=== PATIENT | female | born 1960 ===

== ENCOUNTER → 2022-03-09 15:25 | Outpatient (BNVA) | payer OTHER, SELFPAY | PROVIDERS: PCP Internal Medicine; Visit Provider Internal Medicine | DX: K74.69 Other cirrhosis of liver (principal); B19.20 Unspecified viral hepatitis C without hepatic coma; C22.0 Liver cell carcinoma; R18.8 Other ascites | CPT/HCPCS: 99202 ==

== ENCOUNTER 2022-11-08 10:34 | Outpatient (REF) | payer OTHER, SELFPAY ==
--- NOTE | 2022-11-08 17:00 | MHC.AU.ANO ---
Adult Audiological Evaluation Date of Visit: 11/08/22 [address] Mail Carrier Used: No Reason for Appointment: Katherine was referred for an audiologic evaluation due to increasing hearing difficulties, right ear greater than left. She reports long-standing hearing difficulties, and more recent problems with dizziness. Katherine notes episodes of brief dizziness which occur in all positions including walking, standing, turning, sitting, and laying down. The longest episode was approximately 5 minutes; however, she reports these episodes are occurring more often and changing in intensity. Has hearing been tested previously?: Yes Previous Hearing Test Results: Many years ago. Results are not available for review. Hearing Handicap Inventory: HHIE SCORE: 16 Based on HHIE score, patient has: Mild to moderate perceived hearing handicap Ear History: History of Ear Wax Buildup: Right ear greater than left Bothersome Tinnitus/Ringing/Noises in Ears: Right Ear Ear used on the phone: Left Ear History of occupational noise exposure?: No History: No Medical History: Medical History: Liver Cancer, Hepatitis C, mild cognitive disorder, vitamin D deficiency, hypertension Medication List: ProAir, Spironolactone, Metoprolol, Gabapentin, Tizanidine, Omeprazole, Meclizine, Ondansetron Otoscopy: Right Ear: Completely occluding cerumen. Able to remove all cerumen prior to testing Left Ear: Small amount of non-occluding cerumen Tympanometry: Tympanometry performed due to: To assess integrity of the middle ear system Right Ear: Normal Middle Ear System (Type A) Left Ear: Reduced Middle Ear Compliance (Type As) Acoustic Reflexes: Patient did not tolerate acoustic reflex testing Otoacoustic Emissions Frequency Range Used: 1.6-8 kHz Right Ear Results: Absent Emissions Analysis: Results are consistent with degree and configuration of hearing loss Left Ear Results: Absent Emissions Analysis: Results are consistent with degree and configuration of hearing loss Hearing Evaluation: Transducer(s) Used: Insert Earphones Bone Conduction Method: Conventional Audiometry Stimuli Used: Pure Tones Right Ear: Description of Hearing: Borderline normal hearing at 250 and 500 Hz, dropping to a severe high frequency sensorineural hearing loss with 92% speech understanding at 75 dB HL Left Ear: Description of Hearing: Borderline normal hearing at 250 and 500 Hz, dropping to a severe high frequency sensorineural hearing loss with92% speech understanding at 75 dB HL Interpretation of Results: With the significant severe high frequency sensorineural hearing loss, Katherine is able to hear , but have difficulty understanding During testing, Katherine indicated significant sound tolerance problems for speech and the high frequency stimuli. Left ear UCL thresholds are reduced compared to the right and may relate to the tolerance problems noted by Katherine. Recommendations: - Medical consultation with Protection Mgr Dr. Bronson Frias for further assessment of the sound tolerance difficulties and dizziness. - Discussed trial period with amplification; however, there are concerns regarding Katherine's sound tolerance. If medically cleared for hearing aids by Dr. Frias, Katherine may schedule a Hearing Aid Evaluation at this office. - Advise audiologic re-evaluation in one year, or sooner if there is an increase in symptoms. Diagnosis: Primary Diagnosis: H90.3 Bilateral Sensorineural Hearing Loss Services Performed: Comprehensive Audiological Evaluation (CPT 84302) Diagnostic Otoacoustic Emissions (CPT 04410, 26+TC) Tympanometry (CPT 66358) Signature: Provider: Brandon Cain, [facility]
== END 2022-11-08 10:35 | disposition home or self-care (01) ==
LOC: HO.SH 10:34
PROVIDERS: Visit Provider Internal Medicine
DX: Z01.118 Encounter for examination of ears and hearing with other abnormal findings (principal); H90.3 Sensorineural hearing loss, bilateral
CPT/HCPCS: 92557; 92567; 92588

== ENCOUNTER 2023-03-08 10:25 | Outpatient (AMB) | payer OTHER, SELFPAY ==
--- NOTE | 2023-03-08 10:27 | A.OFFVIS_ITS ---
Intake Vital Signs 03/08/23 10:29 Height 5 ft 5 in Weight 209 lb 7.026 oz BMI 34.8 BP 140/73 H Blood Pressure Location Lt brachial Position Sitting Pulse 75 Intake Visit Reasons: follow up Cirrhosis Intake Note: Katherine presents in the office as a follow up for Cirrhosis. CC: She states that she is having burning in her stomach when she eats. Constipation but it is not all the time. 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 03/09/22: Patient previously has been a patient of Dr. Mcconnell. She was diagnosed with hepatitis-C in 2005. At that time treatment was not pursued. She was initially treated in 2018 with reported SVR. Patient does not recall the medication, thinks may have been Epclusa. Did not have any complication from portal hypertension until 2018, when post cholecystectomy he developed ascites. Since then she has been on diuretics. She also subsequently had an upper endoscopy and was told that she does not have any varices. In terms of her HCC, she does recall undergoing ultrasound for her liver. In August 2017, a 1 cm nodule in the liver was noted on ultrasound. This was followed up with an MRI, the report of which is not available. She also reports having a liver biopsy, again report is not available. In May 2020, patient developed severe right-sided abdominal pain associated with nausea which prompted a visit to [facility] emergency room. She was found to have an exophytic liver mass measuring 5 cm as well as other multifocal lesions. She was referred to [facility] for consideration of resection versus transplant but was outside [facility] criteria. She was also not a candidate for local regional therapy. She sees Dr. Moreno for Oncology. She was started on atezolizumab and bevacizumab combination systemic therapy however had severe adverse effects and therefore stopped it after 1 session. She was then offered nivolumab monotherapy, which the patient declined. Currently, she has been off any palliative treatment for at least a year. Her main complaint at present is right midback discomfort especially on lying down. She also occasionally has sensation of increased fatigue and decreased stamina with palpitations. Had initially lost weight, but did regain some of it. Most recent MRI from late January or February shows decrease in the size of the liver mass as well as other lesions. However, her AFP climbed up to 179. Additional GI records: HCV genotype 1A. Epclusa from December to March 2018. SVR June 2018. Recent endoscopy: EGD 2018 - normal Patient has never had a colonoscopy. No family history of liver cancer or colon cancer. Mother: polyps. Unclear if had repeat EGD prior to start atezolizumab/bevacizumab. 03/08/23: Seen with the help of certified court interpreter. Daughter and nephew present in room. Two main issues today: i) Abd pain: Recently was on a lot of NSAIDs including ibuprofen and naproxen x 3-4 weeks for toothache. Was taking ibuorofen 800 TID and naproxen 500 BID x 3-4 weeks. Had burning epigastric abd pain onset within a week of doing this. Did take omeprazole but only as needed. This has now improved and has not had any pain in 3 days. No N/V. BMs have been regular does not report loose or black stools. Appetite unchanged. ii) Dysphagia: pt has also been noticing intermittent difficulty swallowing mainly to pills. Does not appear to be progressive. No pain on swallowing, regurgitation or unintentional weight loss. In terms of HCC, at previous visit pt had decided to not cont any therapy including palliative therapy. However does note that at the last vist with Oncologist Dr Moreno, was told that tumors seem to have gotten smaller than before despite not being on any active treatment. PFSH Surgical History H/O section Hx of cholecystectomy Hx of eye surgery Family History Maternal Aunt Breast cancer Pancreas cancer Maternal Aunt Breast cancer Paternal Aunt Stomach cancer Social History Patient Tobacco Use Status: Former Tobacco user Quit Date: many years Use of substances other than those prescribed or required for medical reasons: No Are you DNR?: No Advance Directives: No Advance Directives Information Provided: Yes Review of Systems Const All systems reviewed & are unremarkable except as noted in HPI and below Physical Exam Vital Signs: Last Vital Signs Pulse 75 03/08/23 10:29 BP 140/73 H 03/08/23 10:29 BMI result Body Mass Index 34.8 Gen Appear: NAD, HEENT: No scleral icterus, no bitemporal wasting noted Chest: CTA CVS: Regular S1/S2 no murmurs Abd: soft, nontender, nondistended, no shifting dullness to percussion, bowel sounds active Ext: No peripheral edema bilaterally Neuro: A/Ox3, no asterixis Derm: Spider angioma noted Assessment & Plan Assessment & Plan (1) Decompensated cirrhosis related to hepatitis C virus (HCV): Code(s): B19.20 - Unspecified viral hepatitis C without hepatic coma; K74.69 - Other cirrhosis of liver (2) Hepatocellular carcinoma: Code(s): C22.0 - Liver cell carcinoma (3) Ascites controlled with medication: Code(s): R18.8 - Other ascites (4) Abdominal pain: Code(s): R10.9 - Unspecified abdominal pain (5) Dysphagia: Code(s): R13.10 - Dysphagia, unspecified Plan 1. Abd pain: Likely from NSAID related gastritis or PUD. Discussed avoidance of NSAIDs not just from abd pain standpoint but also due to underlying cirrhosis and HCC. Tylenol is ok for pain control Plan: - Increase omeprazole 40mg BID x 4 weeks and then decrease to omeprazole 20 once daily - EGD to be booked - Avoid NSAIDs. Tylenol up to 2g/day for pain control 2. Nonprogressive intermittent dysphagia: DDx include cricopharyngeal narrowing vs globus vs ring/web vs stricture. Plan: - EGD as above +/- dilation 3. Decomp HCV cirrhosis with HCC: -- MELD-Na 8 -- Child's Class A Has multifocal HCC and not a candidate for locoregional therapy. Pt declines palliative immunotherapy due to intolerable side effects but does report ? shirnking tumor per most recent scan this summer (done at [facility]). Will get records from her Onc Dr Moreno. Plan: - Updated MELD labs ordered - Imaging as per Oncologist - Overdue for variceal screening and being set up as above - Not determined to be OLT candidate by Carlos per prev documentation - CRC screening: declined by pt and not a candidate anyway if life expectancy <10 years. Follow up after endoscopy Orders: Orders Comprehensive Met. Panel 03/08/23 B19.20 - Unspecified viral hepatitis C without hepatic coma, K74.69 - Other cirrhosis of liver Prothrombin Time INR 03/08/23 B19.20 - Unspecified viral hepatitis C without hepatic coma, K74.69 - Other cirrhosis of liver Complete Blood Count no Diff 03/08/23 R10.9 - Unspecified abdominal pain Medications: Changed From omeprazole 40 mg PO DAILY To omeprazole 40 mg PO BID 4 weeks 56 caps 0RF PUD Coding Level of Care Code Est Pt Level 4 (10363) Diagnoses Decompensated cirrhosis related to hepatitis C virus (HCV) B19.20; K74.69 Hepatocellular carcinoma C22.0 Ascites controlled with medication R18.8 Abdominal pain R10.9 Dysphagia R13.10
[2023-03-08 10:29] VITALS: BP 140/73; PULSE 75; BMI 34.8
== END 2023-03-08 11:46 | disposition home or self-care (01) ==
PROVIDERS: PCP Internal Medicine; Visit Provider Internal Medicine
DX: B19.20 Unspecified viral hepatitis C without hepatic coma (principal); K74.69 Other cirrhosis of liver; C22.0 Liver cell carcinoma; R18.8 Other ascites; R10.9 Unspecified abdominal pain; R13.10 Dysphagia, unspecified
CPT/HCPCS: 99214

== ENCOUNTER 2023-03-08 10:25 | Outpatient (REF) | payer OTHER, SELFPAY ==
[2023-03-08 12:08] LABS: Hematocrit 43.3 % (37.0-47.0); Hemoglobin 14.4 g/dl (12.0-16.0); Mean Corpuscular HGB Conc 33.3 g/dl (31.0-35.0); Mean Corpuscular Hemoglobin 28.8 pg (27.0-33.0); Mean Corpuscular Volume 86.6 fL (80.0-98.0); Mean Platelet Volume 10.1 fL (9.4-12.3); Platelet Count 197 X10*3/uL (160-400); Red Cell Distribution Width 12.9 % (11.0-16.0); White Blood Count 6.5 X10*3/uL (4.8-10.8)
[2023-03-08 12:14] LABS: Prothrombin Time 11.8 SEC (11.1-13.3)
[2023-03-08 12:39] LABS: Alanine Aminotransferase 39 U/L (0-31); Albumin Level 4.2 g/dL (3.5-5.0); Alkaline Phosphatase 77 U/L (39-117); Anion Gap 15 (12-20); Aspartate Amino Transferase 39 U/L (5-31); Bilirubin Total 0.5 mg/dL (0.0-1.0); Blood Urea Nitrogen 16 mg/dL (9-16); Calcium 10.1 mg/dL (8.4-10.2); Carbon Dioxide 26 mmol/L (22-29); Chloride 101 mmol/L (96-108); Estimated Glomerular Filt Rate > 60; Glucose Random 95 mg/dL (60-115); Potassium 4.3 mmol/L (3.3-5.1); Sodium 138 mmol/L (135-145)
== END 2023-03-08 10:26 | disposition home or self-care (01) ==
LOC: HO.LAB 10:25
PROVIDERS: PCP Internal Medicine; Visit Provider Internal Medicine
DX: B19.20 Unspecified viral hepatitis C without hepatic coma (principal); K74.60 Unspecified cirrhosis of liver; C22.0 Liver cell carcinoma; R18.8 Other ascites; R10.9 Unspecified abdominal pain; R13.10 Dysphagia, unspecified
CPT/HCPCS: 36415; 80053; 85027; 85610; 99212

== ENCOUNTER 2023-03-09 06:55 | Day surgery (SDC) | payer OTHER, SELFPAY ==
--- NOTE | 2023-03-08 14:27 | HO.ANESPROP2 ---
Documented by User: Herlinda Sr NP 03/08/23 14:30 HPI - Anesthesia Eval Consult details Narrative: 63yo F for Upper Endoscopy Cirrhosis d/t HCV/Hepatocellular carcinoma (ascites controlled with rx) PMFSH Active Problems Active Problems: All Active Problems (Updated 03/08/23 @ 12:18 by Fanta Del Valle MD) Dysphagia (Acute) Abdominal pain (Acute) Ascites controlled with medication (Acute) Hepatocellular carcinoma (Acute) Decompensated cirrhosis related to hepatitis C virus (HCV) (Acute) Family History Family History Maternal Aunt Breast cancer Pancreas cancer Maternal Aunt Breast cancer Paternal Aunt Stomach cancer Surgical History Surgical History H/O section Hx of cholecystectomy Hx of eye surgery Social History Social History Patient Tobacco Use Status: Former Tobacco user Quit Date: many years Meds Allergies Allergy/AdvReac Type Severity Reaction Status Date / Time acetaminophen [From Percocet] AdvReac Unknown Verified 03/09/23 08:46 oxycodone AdvReac Unknown Verified 03/09/23 08:45 tramadol AdvReac Unknown Verified 03/09/23 08:44 Home Medications Medication Instructions Recorded Confirmed Last Taken Type albuterol sulfate 90 mcg/actuation 2 puff inhalation QID PRN wheezing 03/09/22 Unknown History aerosol inhaler (ProAir HFA) cyclobenzaprine 10 mg tablet 10 mg PO TID PRN muscle spasm 03/09/22 Unknown History gabapentin 300 mg capsule 0 mg PO 03/09/22 Unknown History meclizine 25 mg tablet 25 mg PO TID PRN vertigo 03/09/22 Unknown History metoprolol tartrate 50 mg tablet 50 mg PO BID 03/09/22 Unknown History naproxen 500 mg tablet 500 mg PO BID PRN pain 03/09/22 Unknown History spironolactone 25 mg tablet 25 mg PO DAILY 03/09/22 03/09/23 03/09/23 History tizanidine 4 mg tablet 4 mg PO TID PRN muscle spasm 03/09/22 Unknown History Exam Exam Date and Time: March 08, 2023 142 Pertinent Lab Results Pertinent Lab Results: Laboratory Tests 03/08/23 11:45 WBC 6.5 Hgb 14.4 Hct 43.3 Plt Count 197 Sodium 138 Potassium 4.3 Chloride 101 Carbon Dioxide 26 BUN 16 Creatinine 0.70 Assessment and Plan Assessment Anesthesia Assessment: Chart Reviewed Documented by User: Dariel Duncan MD 03/09/23 13:38 PMFSH Family History Family History Maternal Aunt Breast cancer Pancreas cancer Maternal Aunt Breast cancer Paternal Aunt Stomach cancer Family history of problems with anesthesia: No Surgical History Surgical History H/O section Hx of cholecystectomy Hx of eye surgery History of Problems with Anesthesia: No Social History Social History Patient Tobacco Use Status: Former Tobacco user Quit Date: many years Meds Allergies Allergy/AdvReac Type Severity Reaction Status Date / Time acetaminophen [From Percocet] AdvReac Unknown Verified 03/09/23 08:46 oxycodone AdvReac Unknown Verified 03/09/23 08:45 tramadol AdvReac Unknown Verified 03/09/23 08:44 Home Medications Medication Instructions Recorded Confirmed Last Taken Type albuterol sulfate 90 mcg/actuation 2 puff inhalation QID PRN wheezing 03/09/22 Unknown History aerosol inhaler (ProAir HFA) cyclobenzaprine 10 mg tablet 10 mg PO TID PRN muscle spasm 03/09/22 Unknown History gabapentin 300 mg capsule 0 mg PO 03/09/22 Unknown History meclizine 25 mg tablet 25 mg PO TID PRN vertigo 03/09/22 Unknown History metoprolol tartrate 50 mg tablet 50 mg PO BID 03/09/22 Unknown History naproxen 500 mg tablet 500 mg PO BID PRN pain 03/09/22 Unknown History spironolactone 25 mg tablet 25 mg PO DAILY 03/09/22 03/09/23 03/09/23 History tizanidine 4 mg tablet 4 mg PO TID PRN muscle spasm 03/09/22 Unknown History Exam Airway Mallampati Class: II TM Dist: >3cm Neck ROM: Full Assessment and Plan Assessment Anesthesia Assessment: Anesthesia Plan Discussed Final Anesthetic Review Family History of Problems with Anesthesia: No History of Problems with Anesthesia: No NPO: Yes ASA Class: III Final Preanesthetic Review: No Changes in Pt Med Stat, Meds/Allgs Chart Reviewed, Consent Obtained/Reviewed and Anes Risks/Benef Reviewed Patient Risk: Intermediate Procedure Risk: Low Anesthetic Plan Anesthetic Plan: MAC: Disposition: Standard PACU
[2023-03-09 07:11] VITALS: BMI 34.8
[2023-03-09 07:14] VITALS: BP 126/61; PULSE 72; RESP 18; TEMP 37.1; O2SAT 99
[2023-03-09] MEDS: Lactated Ringers 1,000 ML 100 ML IVCONT (07:31)
--- NOTE | 2023-03-09 08:35 | P.OP_ITS ---
Operative Note Operative Note Date of Service: 03/09/23 Narrative: Procedure: Esophagogastroduodenoscopy Endoscopist: Fanta Del Valle MD Indication: Abd pain, dysphagia, cirrhosis Anesthesia Provider: Dr Dariel Duncan Anesthesia Type: MAC ?? EGD Procedure:?? The procedure, indications, preparation and potential complications were reviewed with the patient, who indicated understanding and gave written informed consent to proceed. A physical exam was performed. The endoscope was introduced through the mouth, and advanced to the second part of duodenum. The mucosa was carefully examined on slow withdrawal of the endoscope. The patient tolerated the procedure well. There were no immediate complications.? ? EGD Findings:? * Esophagus:? Normal mucosa noted in the entire esophagus. The Z line was at 39 cm. No varices were noted. * Stomach:? Normal mucosa was noted in the stomach. No distinct signs of portal hypertensive gastropathy such as congestion or mosaic pattern was appreciated. No gastric varices. * Duodenum:? Normal mucosa was noted in the whole of the examined duodenum. Additional intervention: A soft tipped Savary wire was introduced through the biopsy channel and advanced to the antrum. The gastroscope was then backed out. A Savary Cesario bougie was advanced over the guidewire and esophagus was dilated to 18 mm with no resistance. On relook, no tear or heme noted. ? EGD Impressions:? * Normal esophagus (dilation) * Normal stomach * Normal duodenum ?? Recommendations:?? * Although no distinct narrowing or stricture was noted, the esophagus was empirically dilated to 18 mm. If dysphagia to pills resolves, this can be repeated as needed, otherwise, would recommend a barium esophagogram for further evaluation. * Continue PPI therapy. * Avoid NSAIDs. Tylenol is okay to take up to 2g/day. Above has been reviewed with the patient.
--- NOTE | 2023-03-09 08:35 | MHC.SHP ---
Pre-Procedural Eval Section A Date of Service: 03/09/23 The History & Physical has been completed within 30 days and I have reviewed it.: Yes Section B Chief Complaint: Abd pain, dysphagia, cirrhosis Allergies: Allergies Allergy/AdvReac Type Severity Reaction Status Date / Time No Known Allergies Allergy Verified 03/08/23 10:29 Plan Diagnosis/Plan: Unchanged I have reviewed the history and physical and performed a pertinent physical examination on my patient. No changes have occurred unless specified. Time Spent With Patient Time: Total time managing care of this patient today ____ minutes.
[2023-03-09 08:52] VITALS: BP 114/54; PULSE 80; RESP 15; TEMP 36.4; O2SAT 95
[2023-03-09 09:15] VITALS: BP 124/64; PULSE 75; RESP 18; TEMP 36.4; O2SAT 96
== END 2023-03-09 10:00 | disposition home or self-care (01) ==
PROVIDERS: PCP Internal Medicine; Visit Provider Internal Medicine
PROC: 0DJ08ZZ Inspection of Upper Intestinal Tract, Via Natural or Artificial Opening Endoscopic (ICD-10-PCS; CPT 43235; principal; 2023-03-09 08:20)
DX: R10.9 Unspecified abdominal pain (principal); R13.10 Dysphagia, unspecified; K74.69 Other cirrhosis of liver; C22.0 Liver cell carcinoma; R18.8 Other ascites; B19.20 Unspecified viral hepatitis C without hepatic coma; Z87.891 Personal history of nicotine dependence; Z79.899 Other long term (current) drug therapy
CPT/HCPCS: 43248; C1769

== ENCOUNTER → 2023-03-09 06:55 | Outpatient (BNV) | payer OTHER, SELFPAY | PROVIDERS: PCP Internal Medicine; Visit Provider Internal Medicine | DX: R13.10 Dysphagia, unspecified (principal); K74.69 Other cirrhosis of liver; R10.9 Unspecified abdominal pain | CPT/HCPCS: 43248 ==

== ENCOUNTER 2023-03-17 14:28 | Outpatient (AMB) | payer OTHER, SELFPAY ==
--- NOTE | 2023-03-17 14:38 | A.OFFVIS_ITS ---
Intake Vital Signs 03/17/23 14:41 Height 5 ft 5 in Weight 212 lb 1.355 oz BMI 35.3 BP 138/64 Blood Pressure Location Lt brachial Position Sitting Pulse 75 Intake Visit Reasons: egd FOLLOW UP Intake Note: Patient presents to in office visit today in follow up of EGD. CC: Patient underwent EGD on 03/08/[address] Del Valle. Patient c/o sore throat and ear since after surgery. Pain worst when eating and better when she takes ibuprofen 800 mg and Gabapentin 300 mg. Denies having any other GI symptoms today. 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 03/09/22: Patient previously has been a patient of Dr. Mcconnell. She was diagnosed with hepatitis-C in 2005. At that time treatment was not pursued. She was initially treated in 2018 with reported SVR. Patient does not recall the medication, thinks may have been Epclusa. Did not have any complication from portal hypertension until 2019, when post cholecystectomy he developed ascites. Since then she has been on diuretics. She also subsequently had an upper endoscopy and was told that she does not have any varices. In terms of her HCC, she does recall undergoing ultrasound for her liver. In August 2017, a 1 cm nodule in the liver was noted on ultrasound. This was followed up with an MRI, the report of which is not available. She also reports having a liver biopsy, again report is not available. In May 2020, patient developed severe right-sided abdominal pain associated with nausea which prompted a visit to [facility] emergency room. She was found to have an exophytic liver mass measuring 5 cm as well as other multifocal lesions. She was referred to [facility] for consideration of resection versus transplant but was outside Kevin criteria. She was also not a candidate for local regional therapy. She sees Dr. Moreno for Oncology. She was started on atezolizumab and bevacizumab combination systemic therapy however had severe adverse effects and therefore stopped it after 1 session. She was then offered nivolumab monotherapy, which the patient declined. Currently, she has been off any palliative treatment for at least a year. Her main complaint at present is right midback discomfort especially on lying down. She also occasionally has sensation of increased fatigue and decreased stamina with palpitations. Had initially lost weight, but did regain some of it. Most recent MRI from late January or February shows decrease in the size of the liver mass as well as other lesions. However, her AFP climbed up to 179. Additional GI records: HCV genotype 1A. Epclusa from December to March 2018. SVR June 2018. Recent endoscopy: EGD 2018 - normal Patient has never had a colonoscopy. No family history of liver cancer or colon cancer. Mother: polyps. Unclear if had repeat EGD prior to start atezolizumab/bevacizumab. 03/08/23: Seen with the help of logistics associate. Daughter and nephew present in room. Two main issues today: i) Abd pain: Recently was on a lot of NSAIDs including ibuprofen and naproxen x 3-4 weeks for toothache. Was taking ibuorofen 800 TID and naproxen 500 BID x 3-4 weeks. Had burning epigastric abd pain onset within a week of doing this. Did take omeprazole but only as needed. This has now improved and has not had any pain in 3 days. No N/V. BMs have been regular does not report loose or black stools. Appetite unchanged. ii) Dysphagia: pt has also been noticing intermittent difficulty swallowing mainly to pills. Does not appear to be progressive. No pain on swallowing, regurgitation or unintentional weight loss. In terms of HCC, at previous visit pt had decided to not cont any therapy including palliative therapy. However does note that at the last vist with Oncologist Dr Moreno, was told that tumors seem to have gotten smaller than before despite not being on any active treatment. 03/09/23: EGD: * Normal esophagus (dilation) * Normal stomach * Normal duodenum 03/17/23: Seen with [place] intepreter. Following up today for soreness in both ears and jaw since the EGD. This gets worse in the morning and on chewing. No discomfort on swallowing per se. Has been taking ibuprofen which has been helping. EGD results reviewed and overall normal, no s/sx of CSPH. PFSH Surgical History History of esophagogastroduodenoscopy (EGD) Hx of eye surgery H/O section Hx of cholecystectomy Family History Maternal Aunt Breast cancer Pancreas cancer Maternal Aunt Breast cancer Paternal Aunt Stomach cancer Social History Patient Tobacco Use Status: Former Tobacco user Quit Date: many years Review of Systems Const All systems reviewed & are unremarkable except as noted in HPI and below Physical Exam Vital Signs: Last Vital Signs Pulse 75 03/17/23 14:41 BP 138/64 03/17/23 14:41 BMI result Body Mass Index 35.3 Gen Appear: NAD, HEENT: No scleral icterus, no bitemporal wasting noted Chest: CTA Abd: soft, nondistended Ext: No peripheral edema bilaterally Neuro: A/Ox3 Assessment & Plan Assessment & Plan (1) Jaw pain: Code(s): R68.84 - Jaw pain (2) Decompensated cirrhosis related to hepatitis C virus (HCV): Code(s): B19.20 - Unspecified viral hepatitis C without hepatic coma; K74.69 - Other cirrhosis of liver (3) Hepatocellular carcinoma: Code(s): C22.0 - Liver cell carcinoma (4) Ascites controlled with medication: Code(s): R18.8 - Other ascites Plan 1. Jaw pain: Likely due to positioning to secure airway during the procedure. Pt also advised to watch for any evolving URI sx beulah as also reports bilateral ear pain. Plan: - Avoid NSAIDS - Can take tylenol 650mg up to TID - Anticipate resolution within a week 2. Decomp HCV cirrhosis with HCC: -- MELD-Na 8 -- Child's Class A Has multifocal HCC and previously has not a candidate for locoregional therapy. Pt later declined palliative immunotherapy due to intolerable side effects but does report ? shirnking tumor per most recent scan this summer (done at [facility]). Records from her Onc Dr Moreno still pending. Request refaxed today. Since has good functional status, low MELD and Child's A, would recommend a second opinion for treatment if pt agreeable. Again need to review Onc records. Plan: - Records awaited as above to determine ? second opinion - Imaging as per Oncologist - No varices or PHG on EGD 02/2023. - Not determined to be OLT candidate by Carlos per prev documentation however would strongly advocate for second opinion through [facility] - records awaited. - CRC screening: declined by pt Follow up in 4 months Coding Level of Care Code Est Pt Level 4 (44812) Diagnoses Jaw pain R68.84 Decompensated cirrhosis related to hepatitis C virus (HCV) B19.20; K74.69 Hepatocellular carcinoma C22.0 Ascites controlled with medication R18.8
[2023-03-17 14:41] VITALS: BP 138/64; PULSE 75; BMI 35.3
== END 2023-03-17 15:49 | disposition home or self-care (01) ==
PROVIDERS: PCP Internal Medicine; Visit Provider Internal Medicine
DX: R68.84 Jaw pain (principal); B19.20 Unspecified viral hepatitis C without hepatic coma; K74.69 Other cirrhosis of liver; C22.0 Liver cell carcinoma; R18.8 Other ascites
CPT/HCPCS: 99214

== ENCOUNTER → 2023-03-17 14:28 | Outpatient (BNVA) | payer OTHER, SELFPAY | PROVIDERS: PCP Internal Medicine; Visit Provider Internal Medicine | DX: K74.69 Other cirrhosis of liver (principal); B19.20 Unspecified viral hepatitis C without hepatic coma; C22.0 Liver cell carcinoma; R18.8 Other ascites; R68.84 Jaw pain | CPT/HCPCS: 99212 ==